=== PATIENT | female | born 1965 | race Two or more races ===

== ENCOUNTER 2020-06-04 02:41 | Emergency (ER) | payer OTHER, MEDICAID ==
[~2020-06-04] VITALS: Ht 157.5 cm; Wt 76.2 kg
[2020-06-04 03:12] VITALS: BP 145/98
== END 2020-06-04 07:20 | disposition home or self-care (01) ==
LOC: ER 02:41
DX: S39.012A Strain of muscle, fascia and tendon of lower back, initial encounter (principal); S29.012A Strain of muscle and tendon of back wall of thorax, initial encounter; E11.9 Type 2 diabetes mellitus without complications; I10 Essential (primary) hypertension; V49.9XXA Car occupant (driver) (passenger) injured in unspecified traffic accident, initial encounter; Y93.89 Activity, other specified; Y92.488 Other paved roadways as the place of occurrence of the external cause; Y99.8 Other external cause status
CPT/HCPCS: 72070; 72100

== ENCOUNTER 2021-05-09 01:19 | Emergency (ER) | payer MEDICAID ==
[2021-05-09 05:32] LABS: INR 0.91 (0.9-1.15); Partial Thromboplastin Time 22.2 sec (23.0-31.2)
[2021-05-09 05:40] LABS: Alanine Aminotransferase 51 U/L (13-56); Albumin 3.5 g/dL (3.4-5.0); Alkaline Phosphatase 158 U/L (45-117); Anion Gap 6 (5-15); Aspartate Aminotransferase 20 U/L (15-37); BUN/Creatinine Ratio 18.8; Bilirubin, Total 0.2 mg/dL (0.2-1.0); Blood Urea Nitrogen 12 mg/dL (7-18); Calcium 9.1 mg/dL (8.5-10.1); Carbon Dioxide 29 mmol/L (21-32); Chloride 101 mmol/L (98-107); GFR African American 124 mL/min; GFR Non-African American 102 mL/min; Glucose 299 mg/dL (74-106); Potassium 3.4 mmol/L (3.5-5.1); Sodium 136 mmol/L (136-145); Total Protein 7.7 g/dL (6.4-8.2)
[2021-05-09 05:42] LABS: Basophils # (auto) 0 10 ^3/uL (0-0.2); Basophils % (auto) 0.3 % (0.0-2.0); Eosinophils # (auto) 0.1 10 ^3/uL (0-0.8); Eosinophils % (auto) 1.1 % (0.0-7.0); Hematocrit 46.7 % (36.0-46.0); Hemoglobin 16.1 g/dL (12.2-16.2); Lymphocytes % (auto) 44.9 % (10.0-50.0); Mean Corpuscular Hgb Conc. 34.5 g/dL (32.0-36.0); Mean Corpuscular Volume 92.7 fL (80.0-100.0); Monocytes # (auto) 0.8 10 ^3/uL (0-1.3); Monocytes % (auto) 6.8 % (0.0-12.0); Neutrophils # (auto) 5.3 10 ^3/uL (1.6-8.6); Neutrophils % (auto) 46.9 % (37.0-80.0); Nucleated Red Blood Cells % 0.1 %; Platelet Count (auto) 218 10^3/uL (140-450); Red Blood Cells 5.03 10^6/uL (4.0-5.20); Red Cell Distribution Width 13.8 % (11.8-14.3); White Blood Cell 11.2 10^3/uL (4.4-10.8)
== END 2021-05-09 05:00 | disposition home or self-care (01) ==
LOC: ER 01:19
DX: R07.89 Other chest pain (principal); J45.909 Unspecified asthma, uncomplicated; I10 Essential (primary) hypertension; E11.65 Type 2 diabetes mellitus with hyperglycemia
CPT/HCPCS: 36415; 71045; 80053; 83735; 83880; 84484; 85025; 85049; 85610; 85730; 93005

== ENCOUNTER → 2021-06-17 | Emergency (ER) | payer MEDICAID ==
[~2021-06-17] VITALS: Ht 157.5 cm; Wt 77.1 kg
[~2021-06-17] MED LIST: cloNIDine HCL 0.1 MG TAB PO ONE
[2021-06-17 01:11] VITALS: BP 194/95
== END | disposition left against medical advice (07) ==
LOC: ER 01:11
DX: S00.561A Insect bite (nonvenomous) of lip, initial encounter (principal); Z53.21 Procedure and treatment not carried out due to patient leaving prior to being seen by health care provider; W57.XXXA Bitten or stung by nonvenomous insect and other nonvenomous arthropods, initial encounter; Y93.89 Activity, other specified; Y92.89 Other specified places as the place of occurrence of the external cause; Y99.8 Other external cause status